=== PATIENT | male | born 1970 | race Hispanic/Latino ===

== ENCOUNTER 2018-07-31 18:33 | Emergency (ER) | payer SELFPAY ==
[2018-07-31] MEDS ORDERED: Ketorolac Tromethamine 60 MG/2 ML VIAL ONE (20:22)
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
== END 2018-07-31 21:12 | disposition home or self-care (01) ==
LOC: ERS 18:33
DX: R07.81 Pleurodynia (principal); M25.511 Pain in right shoulder; V43.52XA Car driver injured in collision with other type car in traffic accident, initial encounter
CPT/HCPCS: 71046; 96372; J1885